=== PATIENT | female | born 1965 | race African-American/Black ===

== ENCOUNTER 2024-03-02 11:53 | Emergency (ER) | payer OTHER ==
[2024-03-02 12:13] VITALS: RESP 20
[2024-03-02 12:16] VITALS: BP 119/72; PULSE 79; TEMP 98.5; BMI 24.4
== END 2024-03-02 13:33 | disposition home or self-care (01) ==
LOC: JERFT 11:53
DX: Z04.1 Encounter for examination and observation following transport accident (principal); V79.50XA Passenger on bus injured in collision with unspecified motor vehicles in traffic accident, initial encounter; Y92.410 Unspecified street and highway as the place of occurrence of the external cause
CPT/HCPCS: 99283-25